=== PATIENT | male | born 1980 ===

== ENCOUNTER 2020-11-09 21:40 | Emergency (ER) | payer OTHER ==
[2020-11-09] MEDS ORDERED: Bacitracin/Neomycin/Polymyxin B Oint 0.9 GM U/D Packet TOP ONE (21:50)
[2020-11-09] MEDS ORDERED: Diphtheria,Pertussis(Acell),Tetanus Vaccine 0.5 ML Syringe IM ONE (21:55)
--- NOTE | 2020-11-09 21:56 | EDM.PDOC ---
ED HPI GENERAL MEDICAL PROBLEM - General Chief Complaint: Burn Stated Complaint: minor burn Time Seen by Provider: 11/09/20 21:50 Source of Information: Reports: Patient History Limitations: Reports: No Limitations - History of Present Illness INITIAL COMMENTS - FREE TEXT/NARRATIVE: Patient states while working at [employer] 2 days ago he put his left forearm area down on hot motor. He did not turn in at work to lose his hours but he got some burn gel cream from work and applied it to the area but he wanted to come get it checked out tonight secondary to the pain at the area. He denies any loss of range of motion or pain with movement. No fever redness to the area. He states the blisters did open up though. He rates his pain a 7 out of 10 He is unsure of his last tetanus shot. He has no medical problems. 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 [No Known Home Meds] 11/09/20 [History] ED ROS GENERAL - Review of Systems Review Of Systems: See Below Constitutional: Reports: No Symptoms Respiratory: Reports: No Symptoms Musculoskeletal: Reports: Muscle Pain, Other (At the site of the burn) Skin: Reports: No Symptoms Neurological: Reports: No Symptoms Hematologic/Lymphatic: Reports: No Symptoms Immunologic: Reports: No Symptoms ED EXAM, BURN/SMOKE INHALATION - Physical Exam Exam: See Below Exam Limited By: No Limitations General Appearance: Alert, WD/WN, No Apparent Distress Respiratory: No Respiratory Distress Extremities: Normal Inspection, Normal Range of Motion, Non-Tender, Normal Capillary Refill, Other (Exam to the left anterior forearm there is approximately a 4 cm circular nonerythematous open second-degree burn there is no noted discharge no erythema calor no streaking no signs symptoms of secondary infection. There is no axillary adenopathy he is neurovascular intact radius ulna brachial pulse) Neurological: Alert, Oriented, CN II-XII Intact, Normal Cognition, Normal Gait, No Motor/Sensory Deficits Psychiatric: Normal Affect, Normal Mood Skin Exam: Warm, Dry, Normal Color, No Rash. 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 Patient was given a tetanus secondary to unknown status Last Recorded V/S: Last Vital Signs Temp 36.2 C 11/09/20 21:45 Pulse 94 11/09/20 21:45 Resp 18 11/09/20 21:45 BP 133/79 11/09/20 21:45 Pulse Ox 97 11/09/20 21:45 - Orders/Labs/Meds Orders: Active Orders 24 hr Category Date Time Status Bacitracin/Neomycin/Polymyxin [Triple Antibiotic Oint] Med 11/09/20 21:50 Once 1 each TOP ONETIME ONE Departure - Departure Time of Disposition: 21:55 Disposition: Home, Self-Care 01 Condition: Good Clinical Impression: Burn of forearm, left, second degree - Discharge Information *PRESCRIPTION DRUG MONITORING PROGRAM REVIEWED*: No *COPY OF PRESCRIPTION DRUG MONITORING REPORT IN PATIENT COOKIE: No Referrals: PCP,None [Primary Care Provider] - Sepsis Event Note (ED) - Evaluation Sepsis Screening Result: No Definite Risk - Focused Exam Vital Signs: Vital Signs Temp Pulse Resp BP Pulse Ox 11/09/20 21:45 36.2 C 94 18 133/79 97 - Problem List & Annotations (1) Burn of forearm, left, second degree SNOMED Code(s): 63739052422020624 Code(s): T22.212A - BURN OF SECOND DEGREE OF LEFT FOREARM, INITIAL ENCOUNTER Status: Acute - My Orders Last 24 Hours: My Active Orders 11/09/20 21:50 Bacitracin/Neomycin/Polymyxin [Triple Antibiotic Oint] 1 each TOP ONETIME ONE - Assessment/Plan Last 24 Hours: My Active Orders 11/09/20 21:50 Bacitracin/Neomycin/Polymyxin [Triple Antibiotic Oint] 1 each TOP ONETIME ONE
== END 2020-11-09 22:30 | disposition home or self-care (01) ==
LOC: LL.ED 21:40
DX: T22.212A Burn of second degree of left forearm, initial encounter (principal); Z23 Encounter for immunization; X19.XXXA Contact with other heat and hot substances, initial encounter
CPT/HCPCS: 16020; 90471; 90715; 99283; 99283-25